=== PATIENT | female | born 1985 | race Two or more races ===

== ENCOUNTER 2017-01-07 07:59 | Emergency (ER) | payer OTHER ==
[2017-01-07 08:17] VITALS: BP 140/98
--- NOTE | 2017-01-07 09:17 | ER Document Report ---
ED General - General Chief Complaint: Alcohol Withdrawl Stated Complaint: POSSIBLE ETOH WITHDRAWL TRAVEL OUTSIDE OF THE [place] IN LAST 30 DAYS: No - HPI Patient complains to provider of: alcohol withdrawals Notes: Patient coming in for evaluation of alcohol withdrawals. Patient states she drinks approximately 1 pint to 1 L of liquor a day. Patient states last time she drank was day prior to arrival. Upon evaluation patient is initially sitting comfortably on the bed upon introducing myself and identified myself patient started to have tremors throughout her body. Patient states she has gone through withdrawals before. Patient denies history of DTs. Patient currently states she is in a alcohol program on [place] states today was first day however she was worried therefore came to the ER for further evaluation. Patient drove herself for evaluation - Related Data Allergies/Adverse Reactions: No Known Allergies Allergy (Verified 01/07/17 08:29) Past Medical History - Social History Smoking Status: Never Smoker Chew tobacco use (# tins/day): No Frequency of alcohol use: Heavy Drug Abuse: None Family History: Reviewed & Not Pertinent, Other - DEPRESSION Patient has suicidal ideation: No Patient has homicidal ideation: No Renal/ Medical History: Denies: Hx Peritoneal Dialysis Psychiatric Medical History: Reports: Hx Anxiety, Hx Depression Past Surgical History: Reports: Hx Breast Surgery - augmentation - Immunizations Immunizations up to date: No Hx Diphtheria, Pertussis, Tetanus Vaccination: No Review of Systems - Review of Systems Constitutional: No symptoms reported EENT: No symptoms reported Cardiovascular: No symptoms reported Respiratory: No symptoms reported Gastrointestinal: No symptoms reported Genitourinary: No symptoms reported Female Genitourinary: No symptoms reported Musculoskeletal: No symptoms reported Skin: No symptoms reported Hematologic/Lymphatic: No symptoms reported Neurological/Psychological: Other - Alcohol withdrawals -: Yes All other systems reviewed and negative Physical Exam - Vital signs Vitals: Temp Pulse Resp BP Pulse Ox 97.9 F 108 H 24 H 140/98 H 99 01/07/17 08:16 01/07/17 08:16 01/07/17 08:16 01/07/17 08:16 01/07/17 08:16 Interpretation: Normal - General General appearance: Appears well, Alert - HEENT Head: Normocephalic, Atraumatic Eyes: Normal Pupils: PERRL - Respiratory Respiratory status: No respiratory distress Chest status: Nontender Breath sounds: Normal Chest palpation: Normal - Cardiovascular Rhythm: Regular Heart sounds: Normal auscultation Murmur: No - Abdominal Inspection: Normal Distension: No distension Bowel sounds: Normal Tenderness: Nontender Organomegaly: No organomegaly - Back Back: Normal, Nontender - Extremities General upper extremity: Normal inspection, Nontender, Normal color, Normal ROM , Normal temperature General lower extremity: Normal inspection, Nontender, Normal color, Normal ROM , Normal temperature, Normal weight bearing. No: Darrick's sign - Neurological Neuro grossly intact: Yes Cognition: Normal Orientation: AAOx4 Sid Coma Scale Eye Opening: Spontaneous Sid Coma Scale Verbal: Oriented Refugio Coma Scale Motor: Obeys Commands Refugio Coma Scale Total: 15 Speech: Normal Motor strength normal: LUE, RUE, LLE, RLE Sensory: Normal - Psychological Associated symptoms: Normal affect, Normal mood - Skin Skin Temperature: Warm Skin Moisture: Dry Skin Color: Normal Course - Re-evaluation Re-evalutation: 01/07/17 15:09 Patient has no signs or symptoms consistent with DTs her full-blown alcohol withdrawals. Patient was seen ambulated around the ER. I did offer the patient a prescription of Librium for the next few days to help her with her withdrawal that she was very adamant about stopping her alcohol use. Patient states she was laboring was prescribed. Patient was discharged home. Due to patient driving herself no medication was given here in the ER. - Vital Signs Vital signs: Temp Pulse Resp BP Pulse Ox 97.9 F 108 H 24 H 140/98 H 99 01/07/17 08:16 01/07/17 08:16 01/07/17 08:16 01/07/17 08:16 01/07/17 08:16 Discharge - Discharge Clinical Impression: History of ETOH abuse Condition: Good Disposition: HOME, SELF-CARE Instructions: Alcohol Withdrawl ([facility]) Additional Instructions: Take medication as prescribed. Please follow-up with [facility] or your program on [place] for further evaluation and assistance with your alcohol withdrawals and abuse. Prescriptions: Chlordiazepoxide HCl [Librium 25 mg Capsule] 1 cap PO TID #10 capsule Forms: Return to Work Referrals: [facility] [Provider Group] - Follow up as needed [facility] [Provider Group] - Follow up as needed [facility] [Provider Group] - Follow up as needed
== END 2017-01-07 09:16 | disposition home or self-care (01) ==
LOC: ER 07:59
DX: F10.239 Alcohol dependence with withdrawal, unspecified (principal)
CPT/HCPCS: 99284